=== PATIENT | male | born 1945 | race Caucasian/White ===

== ENCOUNTER → 2017-02-11 | Outpatient (CLI) | payer MEDICARE, BC ==
[~2017-02-11] MED LIST: ATOR20TA PO; CITA20TA5 PO; DOFE500C PO; DOXA2TAB9 PO; FEXO180T15 PO; LOSA100T6 PO; QUET25TA5 PO; WARF5TAB7 PO; WARF7.5T6 PO
== END | disposition home or self-care (01) ==
LOC: CVU 11:48
PROVIDERS: ATTEND Nurse Practitioner Family
DX: I08.0 Rheumatic disorders of both mitral and aortic valves (principal); I70.0 Atherosclerosis of aorta; E78.5 Hyperlipidemia, unspecified; Z85.46 Personal history of malignant neoplasm of prostate; Z85.47 Personal history of malignant neoplasm of testis
CPT/HCPCS: 93306